=== PATIENT | female | born 1995 | race Caucasian/White ===

== ENCOUNTER → 2017-08-24 | Outpatient (CLI) | payer OTHER ==
[~2017-08-24] MED LIST: BCPILLS PO
== END | disposition home or self-care (01) ==
LOC: C.PAPS 08:54
PROVIDERS: ATTEND Obstetrics & Gynecology
DX: Z12.4 Encounter for screening for malignant neoplasm of cervix (principal)

== ENCOUNTER 2023-07-16 16:42 | Inpatient (IN) ==
[2023-07-16] MEDS ORDERED: LIDOCAINE 1% LOCAL 20 ML VIAL INFIL PRN (17:21)
[2023-07-16] MEDS ORDERED: BENZOCAINE 20% SPRY 85 APPLN/85 GM CAN EXT PRN (17:21)
[2023-07-16] MEDS ORDERED: IBUPROFEN 600 MG TAB PO PRN (17:21)
[2023-07-16] MEDS ORDERED: ACETAMINOPHEN 325 MG TAB PO PRN (17:21)
[2023-07-16] MEDS ORDERED: HYDROCORTISONE ACETATE 25 MG SUPP PR PRN (17:21)
[2023-07-16] MEDS ORDERED: LABETALOL HCL IV 5 MG/ML 20ML IV STA (17:21)
[2023-07-16] MEDS ORDERED: DIPHTHERIA/TETANUS/PERTUSSIS Vaccine (Tdap, Age 7+yrs) 0.5mL SYR/VL IM ONE (17:21)
[2023-07-16] MEDS ORDERED: bisacodyL 10 MG SUPP PR PRN (17:21)
[2023-07-16] MEDS ORDERED: MAG SULFATE 4GM BOLUS FROM BAG IV ONE (17:21)
[2023-07-16] MEDS ORDERED: OXYTOCIN 30 UNITS/NSS 30 UNITS/500 ML BAG IV PRN ×3 (17:21→18:44)
[2023-07-16] MEDS ORDERED: NIFEdipine 10 MG CAP PO STA (17:24)
[2023-07-16] MEDS ORDERED: PENICILLIN GK 6 MU in DEXTROSE 5% 250 ML IV STA (17:25)
[2023-07-16] MEDS ORDERED: NIFEdipine 10 MG CAP ONE (17:26)
[2023-07-16] MEDS ORDERED: MAGNESIUM SULFATE 40GM / WTR 1,000 ML BAG IV ONE (17:27)
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
[2023-07-16] MEDS: LACTATED RINGER'S 1,000 ML IV PRN (17:45)
[2023-07-16] MEDS: MAGNESIUM SULFATE / WTR 40 GM/1,000 ML BAG IV SCH (17:45)
[2023-07-16 18:26] LABS: Creatinine Urine Random 19.8 mg/dl; Protein Creatinine Ratio Urine 0.6 (0-0.2)
[2023-07-16 18:44] LABS: Hemoglobin 12.7 g/dl (12.0-16.0); Mean Corpuscular Hemoglobin 27.5 pg (25.0-34.0); Mean Corpuscular Hgb Conc 33.4 g/dL (32.0-36.0); Mean Corpuscular Volume 82.4 fL (80.0-100.0); Mean Platelet Volume 9.7 fL (9.4-12.4); Platelet Count 312 K/uL (130-400); RDW Coefficient of Variation 13.5 % (11.5-14.5); RDW Standard Deviation 39.8 fL (36.4-46.3); Red Blood Count 4.61 M/uL (4.20-5.40); White Blood Count 12.36 K/ul (4.8-10.8)
--- NOTE | 2023-07-16 18:47 | Labor Progress Brief Note ---
Date of Service July 16, 2023 Subjective Patient is feeling ok. Assessment & Plan (1) Severe preeclampsia: Trimester: third trimester Qualified Code(s): O14.13 - Severe pre-eclampsia, third trimester Plan favorable cervix. will start induction with pit. arom as indicated. epidural on demand. BPS much improved with one dose of po nifedipine and Mag. fetus category one. Admission and Anticipated Discharge Date Admission Date: July 16, 2023 Physical Exam Physical Exam: cx--2-3/80/-2/soft/mid toco--albin efm--120s with mod variability, small accels , no decels Results & Data Vital Signs (Past 12 Hours) Vital Signs Temp Pulse Resp BP 07/16/23 18:28 94 H 20 132/80 07/16/23 18:23 99 H 125/72 07/16/23 18:12 92 H 134/75 07/16/23 18:08 95 H 139/77 07/16/23 18:02 96 H 137/75 07/16/23 17:57 90 142/82 H 07/16/23 17:52 92 H 161/81 H 07/16/23 17:47 89 164/94 H 07/16/23 17:33 93 H 155/115 H 07/16/23 17:23 36.7 C 20 07/16/23 17:23 88 186/108 H 07/16/23 17:02 85 187/97 H Coding Level of Care Code None Diagnoses Severe pre-eclampsia in third trimester O14.13 Trimester: third trimester
[2023-07-16 18:57] LABS: Albumin Globulin Ratio 1.1 (0.9-2); Albumin Level 3.4 gm/dl (3.4-5.0); BUN Creatinine Ratio 18.5 (10-20); Bilirubin,Total 0.3 mg/dl (0.2-1.0); Calcium 9.1 mg/dl (8.6-10.3); Creatinine Clr Calc Pharmacy 187.8 ml/min; Est GFR (African American) 146.8 ml/min; Est GFR (Non-African American) 126.6 ml/min; Globulin 3.1 gm/dl (2.5-4.0); Potassium 4.3 mmol/L (3.5-5.1); Total Protein 6.5 gm/dl (6.0-8.3)
[2023-07-16] MEDS ORDERED: DOCUSATE SODIUM 100 MG CAP PO SCH (21:00)
[2023-07-16] MEDS: ACETAMINOPHEN 325 MG TAB PO PRN (22:39)
[2023-07-16] MEDS: PENICILLIN GK 3 MU in DEXTROSE 5% 100 ML IV PRN (23:42)
[2023-07-17] MEDS ORDERED: fentANYL 2 MCG/ML BUPIVacaine 0.125%-NSS 100ML BAG ONE (01:10)
[2023-07-17] MEDS ORDERED: fentaNYL citrate PF 100 MCG/2 ML VIAL ONE (01:10)
[2023-07-17] MEDS ORDERED: ePHEDrine sulfate 50 MG/ML AMP ONE (01:10)
[2023-07-17] MEDS ORDERED: BUPIVACAINE 0.25% PF 30 ML VIAL ONE (01:10)
[2023-07-17] MEDS ORDERED: LIDOCAINE 2%/EPINEPHRINE 1:200,000 20 ML PF ONE (01:10)
[2023-07-17] MEDS ORDERED: SODIUM CHLORIDE 0.9% PF INJ 10 ML VIAL ONE (01:10)
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
[2023-07-17] MEDS: LACTATED RINGER'S 1,000 ML IV PRN ×2 (01:39→03:12)
[2023-07-17] MEDS ORDERED: LIDOCAINE 2%/EPINEPHRINE 1:200,000 20 ML PF EPI STA (01:57)
[2023-07-17] MEDS ORDERED: fentaNYL citrate PF 100 MCG/2 ML VIAL EPI PRN (01:57)
[2023-07-17] MEDS ORDERED: fentANYL 2 MCG/ML BUPIVacaine 0.125%-NSS 100ML BAG EPI PRN (01:57)
[2023-07-17] MEDS ORDERED: SODIUM CHLORIDE 0.9% PF INJ 10 ML VIAL EPI STA (01:57)
[2023-07-17] MEDS ORDERED: ONDANSETRON INJ 2 MG/ML 2 ML VIAL IV PRN (01:57)
[2023-07-17] MEDS ORDERED: BUPIVACAINE 0.25% PF 30 ML VIAL EPI PRN (01:57)
[2023-07-17] MEDS ORDERED: NALOXONE HCL 1 MG in SODIUM CHLORIDE 0.9% 1,000 ML IV PRN (01:57)
[2023-07-17] MEDS ORDERED: LIDOCAINE 2% MPF LOCAL 5 ML VIAL EPI PRN (01:57)
[2023-07-17] MEDS ORDERED: ROPIVACAINE 0.5% PF 5 MG/ML 20 ML VIAL EPI PRN (01:57)
[2023-07-17] MEDS ORDERED: fentaNYL citrate PF 100 MCG/2 ML VIAL EPI STA (01:57)
[2023-07-17] MEDS ORDERED: NALOXONE HCL 0.4 MG/1 ML VIAL/CARP IV PRN (01:57)
[2023-07-17] MEDS ORDERED: NALBUPHINE HCL 5 MG in SYRINGE 0 ML IV PRN (01:57)
[2023-07-17] MEDS ORDERED: diphenhydrAMINE 50 MG/ML VIAL IV PRN (01:57)
[2023-07-17] MEDS ORDERED: SODIUM CHLORIDE 0.9% PF INJ 10 ML VIAL EPI PRN (01:57)
[2023-07-17] MEDS ORDERED: ePHEDrine sulfate 50 MG/ML AMP IV PRN (01:57)
[2023-07-17] MEDS ORDERED: BUPIVACAINE 0.25% PF 30 ML VIAL EPI STA (01:57)
[2023-07-17] MEDS: ACETAMINOPHEN 325 MG TAB PO PRN ×2 (03:42→11:36)
[2023-07-17] MEDS: PENICILLIN GK 3 MU in DEXTROSE 5% 100 ML IV PRN ×3 (03:46→11:01)
--- NOTE | 2023-07-17 04:14 | Labor Progress Brief Note ---
Date of Service July 17, 2023 Subjective comfortable Assessment & Plan (1) Severe preeclampsia: Trimester: third trimester Qualified Code(s): O14.13 - Severe pre-eclampsia, third trimester (2) with 37 weeks completed gestation: Plan continue current management. fetus category one. Blood pressures not in severe range. no s/s of issues with mag. Admission and Anticipated Discharge Date Admission Date: July 16, 2023 Physical Exam Physical Exam: cx--3/80/-2 toco--q2-4min, pit at 10 efm--120s with mod varaibility, small accels, no decels arom--clear fluid Results & Data Vital Signs (Past 12 Hours) Vital Signs Temp Pulse Resp BP Pulse Ox 07/17/23 04:07 84 100 07/17/23 04:02 80 99 07/17/23 03:58 79 148/75 H 07/17/23 03:57 77 99 07/17/23 03:52 81 100 07/17/23 03:47 82 100 07/17/23 03:42 80 139/86 100 07/17/23 03:37 80 99 07/17/23 03:32 90 99 07/17/23 03:30 16 07/17/23 03:30 16 07/17/23 03:30 36.9 C 16 07/17/23 03:28 83 140/85 07/17/23 03:27 83 99 07/17/23 03:22 82 99 07/17/23 03:17 82 100 07/17/23 03:15 18 07/17/23 03:15 18 07/17/23 03:12 86 135/88 99 07/17/23 03:07 80 130/85 99 07/17/23 03:03 80 144/80 H 07/17/23 03:02 83 100 07/17/23 03:00 18 07/17/23 03:00 18 07/17/23 02:58 81 137/76 07/17/23 02:57 81 100 07/17/23 02:52 99 07/17/23 02:52 80 07/17/23 02:52 78 135/78 07/17/23 02:48 80 139/78 07/17/23 02:47 81 99 07/17/23 02:42 79 139/71 99 07/17/23 02:38 78 138/74 07/17/23 02:37 83 98 07/17/23 02:33 78 134/77 07/17/23 02:32 81 98 07/17/23 02:30 16 07/17/23 02:27 84 130/70 100 07/17/23 02:25 83 129/72 07/17/23 02:23 88 126/66 07/17/23 02:22 83 136/65 100 07/17/23 02:17 89 97 07/17/23 02:15 18 07/17/23 02:15 18 07/17/23 02:13 98 H 118/63 07/17/23 02:12 93 H 97 07/17/23 02:11 90 116/63 07/17/23 02:10 18 07/17/23 02:10 18 07/17/23 02:09 90 92/51 L 07/17/23 02:07 98 07/17/23 02:07 88 07/17/23 02:07 88 98/52 L 07/17/23 02:05 81 96/53 L 07/17/23 02:03 89 96/55 L 07/17/23 02:02 92 H 98 07/17/23 02:01 91 H 122/67 07/17/23 02:00 18 07/17/23 02:00 18 07/17/23 01:59 88 138/66 07/17/23 01:57 94 H 136/65 98 07/17/23 01:54 86 143/68 H 07/17/23 01:52 88 100 07/17/23 01:47 89 100 07/17/23 01:42 88 100 07/17/23 01:37 88 100 07/17/23 01:32 95 H 100 07/17/23 01:30 16 07/17/23 01:04 78 124/81 07/17/23 00:34 74 126/64 07/17/23 00:30 18 07/17/23 00:30 18 07/17/23 00:30 18 07/17/23 00:03 74 127/67 07/16/23 23:33 83 125/69 07/16/23 23:30 18 07/16/23 23:30 16 07/16/23 23:30 36.6 C 16 07/16/23 23:03 90 124/94 07/16/23 23:00 18 07/16/23 23:00 18 07/16/23 22:33 81 124/71 07/16/23 22:30 16 07/16/23 22:30 16 07/16/23 21:33 89 128/73 07/16/23 21:30 18 07/16/23 21:30 18 07/16/23 21:04 92 H 135/81 07/16/23 20:33 89 134/80 07/16/23 20:30 18 07/16/23 20:30 18 07/16/23 20:30 18 07/16/23 20:03 88 139/75 07/16/23 20:00 36.7 C 07/16/23 19:32 96 H 130/77 07/16/23 19:30 18 07/16/23 19:30 18 07/16/23 19:30 18 07/16/23 19:30 18 07/16/23 19:16 98 H 138/80 07/16/23 19:02 92 H 133/80 07/16/23 18:46 96 H 147/87 H 07/16/23 18:28 94 H 20 132/80 07/16/23 18:23 99 H 125/72 07/16/23 18:12 92 H 134/75 07/16/23 18:08 95 H 139/77 07/16/23 18:02 96 H 137/75 07/16/23 17:57 90 142/82 H 07/16/23 17:52 92 H 161/81 H 07/16/23 17:47 89 164/94 H 07/16/23 17:33 93 H 155/115 H 07/16/23 17:23 36.7 C 20 07/16/23 17:23 88 186/108 H 07/16/23 17:02 85 187/97 H Coding Level of Care Code None Diagnoses Severe pre-eclampsia in third trimester O14.13 Trimester: third trimester with 37 weeks completed gestation Z3A.37
[2023-07-17] MEDS ORDERED: NURSING L&D Epidural Breakthrough Pain Update ONE (07:47)
[2023-07-17] MEDS ORDERED: PRENATAL VITAMIN 1 TAB PO SCH (08:00)
--- NOTE | 2023-07-17 09:05 | Anesthesia Procedure Note ---
Date of Service July 17, 2023 Anesthesia Epidural Re-Dose Vital Signs Temp Pulse Resp BP Pulse Ox 36.9 C 91 H 20 159/133 H 99 07/17/23 07:20 07/17/23 09:02 07/17/23 08:00 07/17/23 08:59 07/17/23 09:02 Notes Pain Intensity: 8 Dilatation (cm): 3.0 Effacement (%): 75 Called by nursing to evaluate epidural as the patient is having increased pain. The epidural was re-dosed with the following medications (all medications via epidural route) after negative aspiration of the epidural catheter for CSF/HEME 1.2% lidocaine and 0.2% ropivacaine 7ml After Epidural Re-Dose Mental Status: alert / awake / arousable Pain: improving with treatment Airway Patency, RR, SpO2: stable & adequate BP & HR: stable & adequate Additional Notes: fhr stable
--- NOTE | 2023-07-17 09:16 | Labor Progress Brief Note ---
Date of Service July 17, 2023 Subjective just had rebolus epidural and pain control is better. she notes mclaughlin and has been using tylenol. no other complaints. Assessment & Plan (1) Severe preeclampsia: Trimester: third trimester Qualified Code(s): O14.13 - Severe pre-eclampsia, third trimester (2) with 37 weeks completed gestation: (3) GBS bacteriuria: Plan good cx change. fhts categ 1. c/w pit, pcn and mag. pt aware i am taking over care. has tylenol ordered for mclaughlin. good urine out. Admission and Anticipated Discharge Date Admission Date: July 16, 2023 Physical Exam Constitutional: WD/WN, vitals as above Genitourinary: Manual OB Exam: + cervical dilation 7 cm, + cervical effacement 90% and + station 0 OB Exam Monitor Tracing: + external FHT monitor used, + external uterine monitor used (q3 pit at 16), + category I and + normal FHT variability Results & Data Vital Signs (Past 12 Hours) Vital Signs Temp Pulse Resp BP Pulse Ox 07/17/23 09:13 85 131/75 07/17/23 09:12 83 100 07/17/23 09:07 100 07/17/23 09:07 78 07/17/23 09:07 77 147/99 H 07/17/23 09:02 91 H 99 07/17/23 08:59 97.9 F 93 H 159/133 H 07/17/23 08:57 95 H 100 07/17/23 08:52 92 H 99 07/17/23 08:47 84 99 07/17/23 08:43 84 157/76 H 07/17/23 08:42 86 100 07/17/23 08:37 89 100 07/17/23 08:32 89 99 07/17/23 08:27 85 134/78 100 07/17/23 08:22 88 100 07/17/23 08:17 83 100 07/17/23 08:13 83 147/84 H 07/17/23 08:12 83 100 07/17/23 08:07 85 100 07/17/23 08:02 86 99 07/17/23 08:00 20 07/17/23 07:58 81 141/85 H 07/17/23 07:57 80 100 07/17/23 07:52 83 98 07/17/23 07:47 84 99 07/17/23 07:43 82 20 155/83 H 07/17/23 07:42 84 100 07/17/23 07:37 80 100 07/17/23 07:32 81 99 07/17/23 07:27 81 151/91 H 99 07/17/23 07:22 82 99 07/17/23 07:20 98.4 F 20 07/17/23 07:17 82 99 07/17/23 07:12 82 148/91 H 100 07/17/23 07:07 84 99 07/17/23 07:02 83 100 07/17/23 07:00 18 07/17/23 07:00 18 07/17/23 06:57 86 145/90 H 100 07/17/23 06:52 84 100 07/17/23 06:47 85 99 07/17/23 06:43 81 148/90 H 07/17/23 06:42 84 100 07/17/23 06:37 80 100 07/17/23 06:32 82 98 07/17/23 06:30 18 07/17/23 06:30 18 07/17/23 06:30 18 07/17/23 06:28 78 136/86 07/17/23 06:27 80 100 07/17/23 06:22 82 100 07/17/23 06:17 88 100 07/17/23 06:12 78 118/65 98 07/17/23 06:07 75 98 07/17/23 06:02 77 97 07/17/23 06:00 18 07/17/23 06:00 18 07/17/23 05:58 78 126/66 07/17/23 05:57 76 97 07/17/23 05:52 80 99 07/17/23 05:47 75 100 07/17/23 05:42 81 132/73 97 07/17/23 05:37 84 99 07/17/23 05:32 77 100 07/17/23 05:30 18 07/17/23 05:30 18 07/17/23 05:30 18 07/17/23 05:28 75 129/74 07/17/23 05:27 75 98 07/17/23 05:22 69 96 07/17/23 05:17 67 95 07/17/23 05:12 72 123/66 97 07/17/23 05:07 67 97 07/17/23 05:02 71 97 07/17/23 05:00 16 07/17/23 05:00 16 07/17/23 04:59 75 120/66 07/17/23 04:57 80 97 07/17/23 04:52 82 99 07/17/23 04:47 83 99 07/17/23 04:43 70 116/58 L 07/17/23 04:42 75 98 07/17/23 04:37 72 97 07/17/23 04:32 81 99 07/17/23 04:30 18 07/17/23 04:27 75 125/60 99 07/17/23 04:22 84 98 07/17/23 04:17 83 98 07/17/23 04:14 82 139/64 07/17/23 04:12 81 100 07/17/23 04:07 84 100 07/17/23 04:02 80 99 07/17/23 04:00 18 07/17/23 04:00 18 07/17/23 04:00 18 07/17/23 04:00 18 07/17/23 03:58 79 148/75 H 07/17/23 03:57 77 99 07/17/23 03:52 81 100 07/17/23 03:47 82 100 07/17/23 03:42 80 139/86 100 07/17/23 03:37 80 99 07/17/23 03:32 90 99 07/17/23 03:30 16 07/17/23 03:30 16 07/17/23 03:30 98.4 F 16 07/17/23 03:28 83 140/85 07/17/23 03:27 83 99 07/17/23 03:22 82 99 07/17/23 03:17 82 100 07/17/23 03:15 18 07/17/23 03:15 18 07/17/23 03:12 86 135/88 99 07/17/23 03:07 80 130/85 99 07/17/23 03:03 80 144/80 H 07/17/23 03:02 83 100 07/17/23 03:00 18 07/17/23 03:00 18 07/17/23 02:58 81 137/76 07/17/23 02:57 81 100 07/17/23 02:52 99 07/17/23 02:52 80 07/17/23 02:52 78 135/78 07/17/23 02:48 80 139/78 07/17/23 02:47 81 99 07/17/23 02:42 79 139/71 99 07/17/23 02:38 78 138/74 07/17/23 02:37 83 98 07/17/23 02:33 78 134/77 07/17/23 02:32 81 98 07/17/23 02:30 16 07/17/23 02:27 84 130/70 100 07/17/23 02:25 83 129/72 07/17/23 02:23 88 126/66 07/17/23 02:22 83 136/65 100 07/17/23 02:17 89 97 07/17/23 02:15 18 07/17/23 02:15 18 07/17/23 02:13 98 H 118/63 07/17/23 02:12 93 H 97 07/17/23 02:11 90 116/63 07/17/23 02:10 18 07/17/23 02:10 18 07/17/23 02:09 90 92/51 L 07/17/23 02:07 98 07/17/23 02:07 88 07/17/23 02:07 88 98/52 L 07/17/23 02:05 81 96/53 L 07/17/23 02:03 89 96/55 L 07/17/23 02:02 92 H 98 07/17/23 02:01 91 H 122/67 07/17/23 02:00 18 07/17/23 02:00 18 07/17/23 01:59 88 138/66 07/17/23 01:57 94 H 136/65 98 07/17/23 01:54 86 143/68 H 07/17/23 01:52 88 100 07/17/23 01:47 89 100 07/17/23 01:42 88 100 07/17/23 01:37 88 100 07/17/23 01:32 95 H 100 07/17/23 01:30 16 07/17/23 01:04 78 124/81 07/17/23 00:34 74 126/64 07/17/23 00:30 18 07/17/23 00:30 18 01/09/24 00:30 18 07/17/23 00:03 74 127/67 07/16/23 23:33 83 125/69 07/16/23 23:30 18 07/16/23 23:30 16 07/16/23 23:30 97.9 F 16 07/16/23 23:03 90 124/94 07/16/23 23:00 18 07/16/23 23:00 18 07/16/23 22:33 81 124/71 07/16/23 22:30 16 07/16/23 22:30 16 07/16/23 21:33 89 128/73 07/16/23 21:30 18 07/16/23 21:30 18 Coding Level of Care Code None Diagnoses Severe pre-eclampsia in third trimester O14.13 Trimester: third trimester with 37 weeks completed gestation Z3A.37 GBS bacteriuria R82.71
[2023-07-17] MEDS: MAGNESIUM SULFATE / WTR 40 GM/1,000 ML BAG IV SCH (10:19)
[2023-07-17] MEDS ORDERED: OXYTOCIN 20 UNITS/LR 1,002 ML IV SCH (12:00)
[2023-07-17] MEDS ORDERED: miSOPROStoL 200 MCG TAB PR ONE (12:00)
--- NOTE | 2023-07-17 12:00 | Delivery Summary ---
Vaginal Delivery Summary Date of Service July 17, 2023 Vaginal Delivery Summary The patient dilated to complete and pushed to deliver a viable male Apgars 7 and 9 via over intact perineum. Mouth and nose bulb suctioned at perineum. Loose nuchal x 1 noted and delivered through and true knot noted. Shoulders and body delivered with ease. Infant was vigorous and crying at . Cord clamped at 30 seconds of life and to maternal abdomen where the cord was then doubly clamped and cut. Placenta delivered spontaneously and intact, three-vessel cord. Hemostasis not achieved at first with dilute pitocin and uterine massage and therefore 800mcg rectal cytotec given. Hemostasis improved. Cervix and sulci intact. EBL 400 cc. Mother and baby stable in recovery. [facility] Vaginal Delivery Charge Delivery Type Details:
[2023-07-17] MEDS ORDERED: BENZOCAINE 20% SPRY 85 APPLN/85 GM CAN EXT PRN (12:27)
[2023-07-17] MEDS ORDERED: DIPHTHERIA/TETANUS/PERTUSSIS Vaccine (Tdap, Age 7+yrs) 0.5mL SYR/VL IM ONE (12:27)
[2023-07-17] MEDS ORDERED: bisacodyL 10 MG SUPP PR PRN (12:27)
[2023-07-17] MEDS ORDERED: HYDROCORTISONE ACETATE 25 MG SUPP PR PRN (12:27)
[2023-07-17] MEDS ORDERED: ACETAMINOPHEN 325 MG TAB PO PRN (12:27)
[2023-07-17] MEDS ORDERED: OXYTOCIN 30 UNITS/NSS 30 UNITS/500 ML BAG IV PRN (12:27)
--- NOTE | 2023-07-17 13:28 | Anesthesia Procedure Note ---
Date of Service July 17, 2023 Anesthesia Post Epidural Note Vital Signs Vital Signs: Temp Pulse Resp BP Pulse Ox 36.6 C 83 20 148/83 H 98 07/17/23 10:37 07/17/23 13:22 07/17/23 13:00 07/17/23 13:12 07/17/23 13:22 Pain Intensity Bilateral Abdomen: Pain Intensity: 0 Notes Mental Status: alert / awake / arousable and participated in evaluation Nausea / Vomiting: adequately controlled Pain: adequately controlled Airway Patency, RR, SpO2: stable & adequate BP & HR: stable & adequate Hydration State: stable & adequate Neuraxial Anesthesia: was administered and sensory block is resolving Anesthetic Complications: no major complications apparent Epidural: Removed without complications and With tip intact
[2023-07-17] MEDS ORDERED: MAGNESIUM SULFATE / WTR 40 GM/1,000 ML BAG IV SCH (13:30)
[2023-07-17] MEDS ORDERED: LACTATED RINGER'S 1,000 ML IV SCH (13:30)
[2023-07-17] MEDS: IBUPROFEN 600 MG TAB PO PRN ×2 (15:56→19:59)
[2023-07-17] MEDS ORDERED: bisacodyL 5 MG TABEC PO SCH (20:00)
[2023-07-17] MEDS: DOCUSATE SODIUM 100 MG CAP PO SCH (23:43)
--- NOTE | 2023-07-18 03:36 | Communication Note ---
Date of Service: July 18, 2023 spoke to pt now ppd#1 , on mag for severe preeclampsia. [place] [facility] [place]. pt had one elevated bp in severe range after learning of this. she is tearful now, just visited with baby before departure. aware of course of care for her unlikely to result in dc home today, will need to be watched to make sure bps remain stable. cbc pendng this am. mag not due to be dc'd until noon. apparently spouse is going to [place] to be with baby and pt mother coming in to be with her. she is pumping and baby did get syringe feed of colostrum and enc pt to cont and support . she verbalized understanding of all. latest bp not in severe range. will watch. they deny questions for me.
[2023-07-18] MEDS: IBUPROFEN 600 MG TAB PO PRN ×2 (03:48→16:03)
[2023-07-18] MEDS: MAGNESIUM SULFATE / WTR 40 GM/1,000 ML BAG IV SCH (03:49)
[2023-07-18 06:05] LABS: Hematocrit (blood only) 30.9 % (37.0-47.0); Hemoglobin 10.2 g/dl (12.0-16.0); Mean Corpuscular Hemoglobin 27.5 pg (25.0-34.0); Mean Corpuscular Volume 83.3 fL (80.0-100.0); Mean Platelet Volume 9.6 fL (9.4-12.4); Platelet Count 250 K/uL (130-400); RDW Coefficient of Variation 13.6 % (11.5-14.5); RDW Standard Deviation 41.2 fL (36.4-46.3); Red Blood Count 3.71 M/uL (4.20-5.40)
[2023-07-18] MEDS: DOCUSATE SODIUM 100 MG CAP PO SCH ×2 (08:23→20:58)
[2023-07-18] MEDS: PRENATAL VITAMIN 1 TAB PO SCH (08:23)
--- NOTE | 2023-07-18 08:52 | Obstetrical Progress Note ---
Date of Service July 18, 2023 Assessment & Plan (1) exam: (2) Severe preeclampsia: Trimester: third trimester Qualified Code(s): O14.13 - Severe pre-eclampsia, third trimester Plan stable, great urine output. cbc noted. bps are overall ok. will need to monitor. will dc mag at noon. dc gallardo then and move to pp and see how bps do. aware will likely need to stay until tomorrow to monitor bps and make sure stable due to preeclampsia diagnosis. Subjective Ambulation: ambulating normally Voiding: no voiding problems Diet Tolerance:: regular diet Lochia:: Small Feeding Type:: breast feeding no mclaughlin or visual change. did get update about baby from [place]. her mom is here and providing support. she feels well. Constitutional: + as per Subjective / HPI Physical Exam Constitutional WD/WN, vitals as above Respiratory normal respiratory effort, lungs clear to auscultation Cardiovascular Rate/Rhythm: regular rate and regular rhythm Gastrointestinal (Abdomen) Inspection/Auscultation: abdomen normal to inspection Percussion/Palpation: abdomen soft Fundus firm 3cm down mild appropriate tenderness Musculoskeletal nt calves tr edema Neurologic grossly normal Psychiatric A+Ox3, euthymic affect Results & Data Vital Signs (Past 12 Hours) Vital Signs Temp Pulse Resp BP Pulse Ox 07/18/23 08:16 73 07/18/23 08:16 160/82 H 07/18/23 08:00 98.4 F 20 07/18/23 08:00 20 07/18/23 07:16 84 07/18/23 07:16 132/75 07/18/23 07:00 20 07/18/23 06:16 77 07/18/23 06:16 139/68 07/18/23 05:45 16 07/18/23 05:42 99 07/18/23 05:42 85 07/18/23 05:37 97 07/18/23 05:37 69 07/18/23 05:32 97 07/18/23 05:32 68 07/18/23 05:27 97 07/18/23 05:27 68 07/18/23 05:22 97 07/18/23 05:22 73 07/18/23 05:17 98 07/18/23 05:17 80 07/18/23 05:16 70 07/18/23 05:16 138/74 07/18/23 05:12 99 07/18/23 05:12 89 07/18/23 05:07 98 07/18/23 05:07 85 07/18/23 05:02 98 07/18/23 05:02 84 07/18/23 04:57 99 07/18/23 04:57 86 07/18/23 04:52 100 07/18/23 04:52 83 07/18/23 04:47 100 07/18/23 04:47 78 07/18/23 04:42 99 07/18/23 04:42 84 07/18/23 04:37 100 07/18/23 04:37 83 07/18/23 04:32 100 07/18/23 04:32 77 07/18/23 04:27 99 07/18/23 04:27 77 07/18/23 04:22 99 07/18/23 04:22 80 07/18/23 04:17 98 07/18/23 04:17 77 07/18/23 04:16 18 07/18/23 04:16 75 07/18/23 04:16 163/81 H 07/18/23 04:12 99 07/18/23 04:12 79 07/18/23 04:07 98 07/18/23 04:07 77 07/18/23 04:02 98 07/18/23 04:02 82 07/18/23 03:57 99 07/18/23 03:57 77 07/18/23 03:52 99 07/18/23 03:52 86 07/18/23 03:47 100 07/18/23 03:47 79 07/18/23 03:42 100 07/18/23 03:42 79 07/18/23 03:37 99 07/18/23 03:37 79 07/18/23 03:32 97.7 F 18 07/18/23 03:32 18 07/18/23 03:32 99 07/18/23 03:32 76 07/18/23 03:27 99 07/18/23 03:27 76 07/18/23 03:22 98 07/18/23 03:22 78 07/18/23 03:17 98 07/18/23 03:17 78 07/18/23 03:13 77 07/18/23 03:13 155/84 H 07/18/23 03:12 97 07/18/23 03:12 77 07/18/23 03:07 98 07/18/23 03:07 81 07/18/23 03:02 99 07/18/23 03:02 84 07/18/23 02:57 99 07/18/23 02:57 90 07/18/23 02:15 18 07/18/23 01:55 89 167/91 H 100 07/18/23 01:50 102 H 99 07/18/23 01:45 107 H 99 07/18/23 01:40 93 H 100 07/18/23 01:35 82 99 07/18/23 01:30 93 H 100 07/18/23 01:25 69 96 07/18/23 01:22 16 07/18/23 01:20 70 97 07/18/23 01:15 69 98 07/18/23 01:10 75 97 07/18/23 01:05 71 98 07/18/23 01:00 70 97 07/18/23 00:55 69 98 07/18/23 00:50 68 97 07/18/23 00:45 68 97 07/18/23 00:40 77 97 07/18/23 00:35 74 98 07/18/23 00:30 74 136/72 98 07/18/23 00:25 76 98 07/18/23 00:20 18 07/18/23 00:20 81 98 07/18/23 00:15 77 98 07/18/23 00:10 74 98 07/18/23 00:05 85 98 07/18/23 00:00 88 98 07/17/23 23:55 77 98 07/17/23 23:50 79 97 07/17/23 23:45 78 98 07/17/23 23:40 76 97 07/17/23 23:35 84 93 07/17/23 23:30 97.7 F 16 07/17/23 23:30 16 07/17/23 23:30 76 151/70 H 98 07/17/23 22:09 18 138/80 07/17/23 22:09 18 07/17/23 21:13 16 07/17/23 21:05 78 16 129/81 97
[2023-07-18] MEDS ORDERED: PRENATAL VITAMIN 1 TAB PO SCH (09:00)
[2023-07-18] MEDS ORDERED: LABETALOL HCL 200 MG TAB PO SCH ×2 (14:15→21:00)
[2023-07-18] MEDS ORDERED: Nursing to Pharmacy Communication SCH (14:30)
[2023-07-18] MEDS: LABETALOL HCL 200 MG TAB PO SCH ×2 (14:36→20:58)
[2023-07-18] MEDS ORDERED: bisacodyL 5 MG TABEC PO SCH (20:00)
--- NOTE | 2023-07-19 06:05 | Obstetrical Progress Note ---
Date of Service <Kalie Celeste MD - Last Filed: 07/19/23 07:25> July 19, 2023 Assessment & Plan <Kalie Celeste MD - Last Filed: 07/19/23 07:25> (1) Encounter for care after hospital delivery: Patient with the above mentioned history and findings was evaluated at bedside and found awake, alert, oriented in all spheres, afebrile, and in no acute distress. Vital signs showed no fever and blood pressures remained stable with range of 121/75 mmHg to 167/91. This morning's BP have remained below 140 SBP and below 90 DBP. Denies symptoms of severity. Currently on Labetalol 200mg BID, which she will continue after discharge. Magnesium was discontinued yesterday and patient is doing well. Her blood type is A positive and most recent hemoglobin is adequate at 10.2 g/dL. She is GBS positive treated intrapartum and rubella immune. Overall, patient is doing well clinically and meeting the desired milestones. Since she is clinically and hemodynamically stable, will discharge today. She is to be seen in the OB clinic in 1 week for a BP check, and is to make another appointment in 6 weeks for her routine pp evaluation. Discharge instructions discussed. All questions answered. <Norma Mora MD - Last Filed: 07/19/23 07:54> (1) Encounter for care after hospital delivery: Subjective <Kalie Celeste MD - Last Filed: 07/19/23 07:25> Hina is a 28y/o female who is now PPD # 2 following IOL due to diagnosis of pre-eclampsia with severity at 37 2/7 weeks. Reports feeling well overall this morning. Refers mild abdominal cramping & 3/10 pain well managed on analgesics. Voiding spontaneously with good urine output. Has passed flatus but no bowel movements yet. Tolerating meals overnight and able to ambulate some. Some persistent lochia with some improvement this morning. Constitutional: no fever, no chills or no sweats Denies shortness of breath or difficulty breathing Cardiovascular: no chest pain or no palpitations Breast: no breast pain Genitourinary (female): no dysuria Neurologic: no headache(s) Denies changes in vision Physical Exam <Kalie Celeste MD - Last Filed: 01/11/24 07:25> General: Alert. Oriented to person, time, and place. Afebrile. No acute distress. Eyes: pupils equal and reactive to light bilaterally, extraocular movements intact. Cardiac: Regular rate and rhythm, no murmurs/rubs/gallops. Respiratory: Clear to auscultation bilaterally a/p, no wheezes/rales/rhonchi. No increased work of breathing. Symmetrical chest rise. No respiratory distress. Abdomen: Soft, nontender, nondistended. Bowel sounds present. Uterus: Uterine fundus firm, non-tender, and palpable below umbilicus. Lower Extremities: Bilateral LE swelling. No calf tenderness. Psych: Euthymic affect. Mood and affect congruence. Regular speech rate and content. Results & Data <Kalie Celeste MD - Last Filed: 07/19/23 07:25> Vital Signs (Past 12 Hours) Vital Signs Temp Pulse Resp BP O2 Del Method 07/19/23 00:30 36.7 C 82 16 121/75 Room Air 07/18/23 19:50 36.6 C 83 16 127/70 Room Air Supervising Physician <Norma Mora MD - Last Filed: 07/19/23 07:54> Co-Signing Physician Notes Resident Physician Supervision Note: I interviewed and examined the patient. Discussed with Dr. Celeste and agree with findings and plan as documented in the note. Any exceptions or clarifications are listed here: PP2 s/p c/b PET w/ SF, finished mag yesterday at noon and started labetalol 200mg po bid. BPs good since, she notes baby is also doing better so likely that is helping her anxiety as well. denies s/s PET. VSS, exam benign and wnl. Ok for dc, will arrange for bp check early next week Documented By: Norma Mora MD Resident Activity Tracking <Kalie Celeste MD - Last Filed: 07/19/23 07:25> Resident Involvement: Resident Care Provided Care Provided: OB Delivery
[2023-07-19] MEDS: IBUPROFEN 600 MG TAB PO PRN (08:34)
[2023-07-19] MEDS: PRENATAL VITAMIN 1 TAB PO SCH (08:34)
[2023-07-19] MEDS: LABETALOL HCL 200 MG TAB PO SCH (08:34)
[2023-07-19] MEDS: DOCUSATE SODIUM 100 MG CAP PO SCH (08:36)
== END 2023-07-19 12:10 | disposition home or self-care (01) | DRG 806 ==
LOC: OPB 16:42 → 4S1 16:44 → 4E1 07-18 15:15